=== PATIENT | male | born 1990 | race Caucasian/White ===

== ENCOUNTER 2021-05-09 11:33 | Emergency (ER) | payer OTHER ==
[2021-05-09 11:55] LABS: HEMOGLOBIN 14.3 gm/dl (14.0-17.5); RED BLOOD COUNT 4.76 M/UL (4.20-5.50); WHITE BLOOD COUNT 12.7 K/UL (4.5-11.0)
[2021-05-09 12:17] LABS: BUN/CREATININE RATIO 14 (0-10)
== END 2021-05-09 13:58 | disposition short-term general hospital (02) ==
LOC: ER1 11:33
PROVIDERS: Emergency Medicine
DX: S32.019A Unspecified fracture of first lumbar vertebra, initial encounter for closed fracture (principal); F17.200 Nicotine dependence, unspecified, uncomplicated; Z20.822 Contact with and (suspected) exposure to COVID-19; V49.40XA Driver injured in collision with unspecified motor vehicles in traffic accident, initial encounter; Y92.410 Unspecified street and highway as the place of occurrence of the external cause
CPT/HCPCS: 70450; 71045; 71250; 72125; 72170; 80053; 83605; 85025; 85610; 85730; 86850; 86900; 86901; 96374; 96375; 99285; G0480; J1170; J1200; J2270; J2360; J2405; J3010; Q9967; U0002